=== PATIENT | female | born 1975 | race African-American/Black ===

== ENCOUNTER 2016-05-08 10:50 | Emergency (ER) | payer MEDICAID, OTHER ==
[~2016-05-08] VITALS: Ht 157.5 cm; Wt 63.0 kg
[~2016-05-08 10:50] MED LIST: ASPIRIN81 MG ORAL; LEVOTHYROXINE100 MCG ORAL; LISINOPRIL5 MG ORAL; METOPROLOL SUCC25 MG ORAL; OYSTER SHELL C500 MG PO; RAMIPRIL5 M1 PO; TENORMIN25 MG ORAL; VITAMIN D1000 UNI1 ORAL
[2016-05-08 11:14] VITALS: BP 125/78
[2016-05-08 11:29] LABS: APPEARANCE,URINE CLOUDY; KETONES,URINE NEGATIVE (NEGATIVE); LEUKOCYTE ESTERASE ,URINE 3+ (NEGATIVE); NITRITE,URINE POSITIVE (NEGATIVE); PH,URINE 5 (4.5-8.0); PROTEIN,URINE 2+ (NEGATIVE); UROBILINOGEN,URINE 4 MG/DL (0.0-1.0)
[2016-05-08 11:49] LABS: BACTERIA,URINE FEW /HPF; SQUAMOUS EPITHELIAL CELL,UR FEW /LPF (NONE/OCC); WBC,URINE 20-30 /HPF (0 - 2)
[2016-05-08 11:58] LABS: ICTOTEST POSITIVE
[2016-05-08 12:05] VITALS: BP 119/79
[2016-05-08] MEDS ORDERED: KEFLEX500 MG ORAL ×2 (12:06→12:10)
[2016-05-08] MEDS ORDERED: PHENAZOPYRIDIN100 MG ORAL ×2 (12:06→12:10)
--- NOTE | 2016-05-08 12:15 | Emergency Room Report ---
History of Present Illness General Chief Complaint: Female Urogenital Problems Source: Patient Present Illness HPI 40-year-old female presents ED complaining of burning urination x2 days. Notes increased pressure and urinating. Pain is burning, 5/10, nonradiating. No other area relieving factors. Denies fevers or chills. Denies flank pain. Denies nausea or vomiting. Denies any other associated symptoms Allergies: Coded Allergies: No Known Allergies (Unverified , 02/03/14) Patient History Past Medical History: HTN Past Surgical History: none Pertinent Family History: none Social History: Denies: alcohol use, drug use, smoking Last Menstrual Period: 04/17/16 Now: No Immunizations: UTD Reviewed Nursing Documentation: PMH: Agreed, PSxH: Agreed Nursing Documentation-PMH Past Medical History: No History, Except For Hx Hypertension: Yes Hx Cancer: No - benign breast Hx Gastrointestinal Problems: Yes Hx Neurological Problems: Yes Hx Vertigo: Yes Hx Dizziness: Yes Hx Headaches: Yes Review of Systems All Other Systems: negative except mentioned in HPI Physical Exam Vital Signs Date Time Temp Pulse Resp B/P Pulse Ox O2 Delivery O2 Flow Rate FiO2 05/08/16 11:00 97.7 102 18 125/78 96 Room Air Sp02 EP Interpretation: reviewed, normal General Appearance: no apparent distress, alert, GCS 15, non-toxic Head: normocephalic, atraumatic Eyes: bilateral eye PERRL, bilateral eye normal inspection ENT: hearing grossly normal, normal pharynx, no angioedema, normal voice Neck: full range of motion, supple/symm/no masses Respiratory: chest non-tender, lungs clear, normal breath sounds, speaking full sentences Cardiovascular #1: regular rate, rhythm, no edema Cardiovascular #2: 2+ carotid (R), 2+ carotid (L), 2+ radial (R), 2+ radial (L) , 2+ dorsalis pedis (R), 2+ dorsalis pedis (L) Gastrointestinal: normal bowel sounds, non tender, soft, non-distended, no guarding, no rebound Rectal: deferred Genitourinary: normal inspection, no CVA tenderness Musculoskeletal: back normal, gait/station normal, normal range of motion, non- tender Neurologic: alert, oriented x3, responsive, motor strength/tone normal, sensory intact, speech normal Psychiatric: judgement/insight normal, memory normal, mood/affect normal, no suicidal/homicidal ideation Reflexes: 3+ bicep (R), 3+ bicep (L), 3+ tricep (R), 3+ tricep (L), 3+ knee (R) , 3+ knee (L) Skin: normal color, no rash, warm/dry, well hydrated Lymphatic: no adenopathy Medical Decision Making Diagnostic Impression: Primary Impression: UTI (urinary tract infection) Qualified Codes: N39.0 - Urinary tract infection, site not specified ER Course Hospital Course 40-year-old female presents to ED complaining of dysuria with suprapubic pain. Differential diagnoses include: UTI, cystitis, pyelonephritis Clinical course Patient placed on stretcher. After initial history and physical I ordered UA, urine . UA + bacteria Diagnosis - UTI Stable and discharged home with prescriptions for Rx keflex, pyridium. Instructed to followup with PMD. Return to ED if symptoms recur or worsen Labs Test 05/08/16 11:06 Urine Color Brown Urine Appearance Cloudy Urine pH 5 (4.5-8.0) Urine Specific [place] 1.020 (1.005-1.035) Urine Protein 2+ (NEGATIVE) Urine Glucose (UA) Negative (NEGATIVE) Urine Ketones Negative (NEGATIVE) Urine Occult Blood 5+ (NEGATIVE) Urine Nitrite Positive (NEGATIVE) Urine Bilirubin 2+ (NEGATIVE) Urine Ictotest Positive Urine Urobilinogen 4 MG/DL (0.0-1.0) Urine Leukocyte Esterase 3+ (NEGATIVE) Urine RBC 5-10 /HPF (0 - 2) Urine WBC 20-30 /HPF (0 - 2) Urine Squamous Epithelial Cells Few /LPF (NONE/OCC) Urine Bacteria Few /HPF (NONE) Urine HCG, Qualitative Negative Last Vital Signs Date Time Temp Pulse Resp B/P Pulse Ox O2 Delivery O2 Flow Rate FiO2 05/08/16 12:05 97.7 89 18 119/79 96 Room Air Status: improved Disposition: HOME, SELF-CARE Condition: Stable Scripts Phenazopyridine Hcl* (PYRIDIUM*) 100 Mg Tablet 100 MG ORAL THREE TIMES A DAY, #9 TAB Prov: KHALIF HUGO M.D. 05/08/16 Cephalexin* (KEFLEX*) 500 Mg Capsule 500 MG ORAL Q6H, #28 CAP 0 Refills Prov: KHALIF HUGO M.D. 05/08/16 Patient Instructions: Urinary Tract Infection KHALIF HGUO M.D. May 08, 2016 12:15
== END 2016-05-08 12:10 | disposition home or self-care (01) ==
LOC: EMR 11:50
DX: N39.0 Urinary tract infection, site not specified (principal); I10 Essential (primary) hypertension
CPT/HCPCS: 81003; 81025; 87086; 87181; 99284

== ENCOUNTER 2018-10-25 10:50 | Emergency (ER) | payer MEDICAID ==
[~2018-10-25] VITALS: Ht 157.5 cm; Wt 67.6 kg
[~2018-10-25 10:50] MED LIST changes: +KEFLEX500 MG ORAL; +PHENAZOPYRIDIN100 MG ORAL
--- NOTE | 2018-10-25 10:55 | NUR ---
ED Nurse Note: Patient walked in to ER due to chest discomfort x3 days. No SOB. Afebrile. Hx of thyroidectomy 7 years ago and masectomy 11 years ago due to possible breast ca. She has HTN and hypothyroidism. Alert and oriented x4, verbally responsive.
[2018-10-25] MEDS ORDERED: AMLODIPINE BESYL5 MG ORAL (11:16)
[2018-10-25 11:30] VITALS: BP 127/84
[2018-10-25 11:38] LABS: APPEARANCE,URINE CLOUDY; BILIRUBIN, URINE NEGATIVE (NEGATIVE); COLOR,URINE BROWN; GLUCOSE, URINE (UA) NEGATIVE (NEGATIVE); KETONES,URINE 1+ (NEGATIVE); LEUKOCYTE ESTERASE ,URINE 2+ (NEGATIVE); NITRITE,URINE POSITIVE (NEGATIVE); PH,URINE 7 (4.5-8.0); PROTEIN,URINE 2+ (NEGATIVE); UROBILINOGEN,URINE 1 MG/DL (0.0-1.0)
[2018-10-25 11:39] LABS: BASOPHILS % (AUTO) 1.3 % (0.0-2.0); EOSINOPHILS % (AUTO) 2.1 % (0.0-3.0); HEMATOCRIT 33.7 % (37.0-47.0); HEMOGLOBIN 10.9 G/DL (12.0-16.0); LYMPHOCYTES % (AUTO) 33.5 % (20.0-45.0); MEAN CORPUSCULAR VOLUME 91 FL (80-99); MONOCYTES % (AUTO) 9.3 % (1.0-10.0); NEUTROPHILS % (AUTO) 53.8 % (45.0-75.0); PLATELET COUNT 261 K/UL (150-450); RED BLOOD COUNT 3.71 M/UL (4.20-5.40); RED CELL DISTRIBUTION WIDTH 13.6 % (11.6-14.8); WHITE BLOOD COUNT 6.3 K/UL (4.8-10.8)
--- NOTE | 2018-10-25 11:42 | Emergency Room Report ---
History of Present Illness General Chief Complaint: Chest Pain Source: Patient Present Illness HPI 43-year-old female history of hypertension, no family history of cardiac disease , no history of heart attacks presents with chest discomfort after eating she states that she has intermittent chest pain with her periods, she denies any dyspnea, no shortness of breath, no nausea no vomiting no diaphoresis, she states her chest pain has been ongoing since Thursday, 2 days prior to arrival no alleviating factors however eating may exacerbate it, she feels a lot of indigestion. Severity is mild. Allergies: Coded Allergies: No Known Allergies (Unverified , 02/03/14) Patient History Past Medical History: see triage record Last Menstrual Period: 10/24/18 Now: No Reviewed Nursing Documentation: PMH: Agreed; PSxH: Agreed Nursing Documentation-PMH Past Medical History: No History, Except For Hx Hypertension: Yes Hx Cancer: No - benign breast Hx Gastrointestinal Problems: Yes Hx Neurological Problems: Yes Hx Vertigo: Yes Hx Dizziness: Yes Hx Headaches: Yes Review of Systems All Other Systems: negative except mentioned in HPI Physical Exam Vital Signs Date Time Temp Pulse Resp B/P (MAP) Pulse Ox O2 Delivery O2 Flow Rate FiO2 10/25/18 10:55 98.8 92 20 146/83 (104) 98 Room Air Sp02 EP Interpretation: reviewed, normal General Appearance: well appearing, no apparent distress, alert Head: normocephalic, atraumatic Eyes: bilateral eye PERRL, bilateral eye EOMI ENT: uvula midline, moist mucus membranes Neck: supple, thyroid normal, supple/symm/no masses Respiratory: lungs clear, no respiratory distress, no retraction, no accessory muscle use Cardiovascular #1: normal peripheral pulses, regular rate, rhythm, no edema, no gallop, no murmur Gastrointestinal: non tender, soft, no guarding, no rebound Musculoskeletal: normal inspection Neurologic: alert, oriented x3 Psychiatric: mood/affect normal Skin: no rash, warm/dry Medical Decision Making Diagnostic Impression: Primary Impression: Atypical chest pain Additional Impression: UTI (urinary tract infection) Qualified Codes: N30.00 - Acute cystitis without hematuria ER Course Patient with atypical chest pain heart score of 2, no indication for admission, patient doing well, patient found to have an incidental UTI, patient is currently chest pain-free in the ED, she has atypical symptoms, no dyspnea on exertion no sweating, patient given strict return precautions for ACS, Laboratory Tests Test 10/25/18 11:06 White Blood Count 6.3 K/UL (4.8-10.8) Red Blood Count 3.71 M/UL (4.20-5.40) L Hemoglobin 10.9 G/DL (12.0-16.0) L Hematocrit 33.7 % (37.0-47.0) L Mean Corpuscular Volume 91 FL (80-99) Mean Corpuscular Hemoglobin 29.5 PG (27.0-31.0) Mean Corpuscular Hemoglobin Concent 32.4 G/DL (32.0-36.0) Red Cell Distribution Width 13.6 % (11.6-14.8) Platelet Count 261 K/UL (150-450) Mean Platelet Volume 6.1 FL (6.5-10.1) L Neutrophils (%) (Auto) 53.8 % (45.0-75.0) Lymphocytes (%) (Auto) 33.5 % (20.0-45.0) Monocytes (%) (Auto) 9.3 % (1.0-10.0) Eosinophils (%) (Auto) 2.1 % (0.0-3.0) Basophils (%) (Auto) 1.3 % (0.0-2.0) Prothrombin Time 10.8 SEC (9.30-11.50) Prothrombin Time INR 1.0 (0.9-1.1) Urine Color Brown Urine Appearance Cloudy Urine pH 7 (4.5-8.0) Urine Specific [place] 1.010 (1.005-1.035) Urine Protein 2+ (NEGATIVE) H Urine Glucose (UA) Negative (NEGATIVE) Urine Ketones 1+ (NEGATIVE) H Urine Blood 5+ (NEGATIVE) H Urine Nitrite Positive (NEGATIVE) H Urine Bilirubin Negative (NEGATIVE) Urine Urobilinogen 1 MG/DL (0.0-1.0) H Urine Leukocyte Esterase 2+ (NEGATIVE) H Urine RBC Tntc /HPF (0 - 2) H Urine WBC 2-4 /HPF (0 - 2) Urine Squamous Epithelial Cells Occasional /LPF Urine Bacteria Few /HPF (NONE) Urine HCG, Qualitative Negative (NEGATIVE) Sodium Level 138 MMOL/L (136-145) Potassium Level 4.2 MMOL/L (3.5-5.1) Chloride Level 105 MMOL/L (98-107) Carbon Dioxide Level 24 MMOL/L (21-32) Anion Gap 9 mmol/L (5-15) Blood Urea Nitrogen 12 mg/dL (7-18) Creatinine 0.5 MG/DL (0.55-1.30) L Estimate Glomerular Filtration Rate > 60 mL/min (>60) Glucose Level 94 MG/DL (74-106) Calcium Level 7.6 MG/DL (8.5-10.1) L Total Bilirubin Pending Aspartate Amino Transferase (AST) Pending Alanine Aminotransferase (ALT) Pending Alkaline Phosphatase Pending Total Creatine Kinase Pending Creatine Kinase MB Pending Troponin I 0.000 ng/mL (0.000-0.056) Pro-B-Type Natriuretic Peptide Pending Total Protein Pending Albumin Pending Globulin Pending Urine Opiates Screen Negative (NEGATIVE) Urine Barbiturates Screen Negative (NEGATIVE) Phencyclidine (PCP) Screen Negative (NEGATIVE) Urine Amphetamines Screen Negative (NEGATIVE) Urine Benzodiazepines Screen Negative (NEGATIVE) Urine Cocaine Screen Negative (NEGATIVE) Urine Marijuana (THC) Screen Negative (NEGATIVE) EKG Diagnostic Results EKG Time: 11:02 EP Interpretation: NSR, rate 86, QTc 437, no acute ST elevations, normal axis, Rate: normal Rhythm: NSR ST Segments: no acute changes Rhythm Strip Diag. Results Rhythm Strip Time: 11:42 EP Interpretation: yes Rate: 83 Rhythm: NSR, no PVC's, no ectopy Chest X-Ray Diagnostic Results Chest X-Ray Diagnostic Results : Chest X-Ray Ordered: Yes # of Views/Limited/Complete: 1 View Indication: Chest Pain EP Interpretation: Yes Interpretation: no consolidation, no effusion, no pneumothorax, no acute cardiopulmonary disease Impression: No acute disease Electronically Signed by: Tyson Bledsoe MD Last Vital Signs Date Time Temp Pulse Resp B/P (MAP) Pulse Ox O2 Delivery O2 Flow Rate FiO2 10/25/18 11:30 98.1 83 18 127/84 100 Room Air Disposition: HOME, SELF-CARE Condition: Stable Scripts Cephalexin* (CEPHALEXIN*) 500 Mg Tablet 500 MG ORAL EVERY 6 HOURS, #40 CAP Prov: Tyson Bledsoe MD 10/25/18 Famotidine (PEPCID AC) 20 Mg Tablet 20 MG PO BID, #60 TAB Prov: Tyson Bledsoe MD 10/25/18 Referrals: NON PHYSICIAN (PCP) [facility] Osiris Garcia. [facility] Patient Instructions: Nonspecific Chest Pain, Urinary Tract Infection, Easy-to- Read Additional Instructions: The patient was provided with discharge instructions, notified to follow-up with a primary care doctor and or specialist in the next 24-48 hours, and to return to the ED if they have worsening of their symptoms. Please note that this report is being documented using [employer] technology. This can lead to erroneous entry secondary to incorrect interpretation by the dictating instrument. PLEASE FOLLOW-UP WITH A THREAD GRINDER IN 24-48 HOURS Tyson Bledsoe MD Oct 25, 2018 11:42
[2018-10-25 11:48] LABS: ANION GAP 9 mmol/L (5-15); BLOOD UREA NITROGEN 12 mg/dL (7-18); CALCIUM 7.6 MG/DL (8.5-10.1); CARBON DIOXIDE 24 MMOL/L (21-32); CHLORIDE 105 MMOL/L (98-107); CREATININE 0.5 MG/DL (0.55-1.30); POTASSIUM 4.2 MMOL/L (3.5-5.1); SODIUM 138 MMOL/L (136-145)
[2018-10-25] MEDS ORDERED: PEPCID AC20 M2 PO (12:15)
[2018-10-25] MEDS ORDERED: CEPHALEXIN500 M1 ORAL (12:17)
[2018-10-25 12:18] LABS: ALANINE AMINOTRANSFERASE 13 U/L (12-78); ALBUMIN 3.5 G/DL (3.4-5.0); ALBUMIN/GLOBULIN RATIO 0.8 (1.0-2.7); ALKALINE PHOSPHATASE 53 U/L (46-116); ASPARTATE AMINO TRANSFERASE 29 U/L (15-37); BILIRUBIN,TOTAL 0.4 MG/DL (0.2-1.0); CREATINE KINASE 132 U/L (26-308)
--- NOTE | 2018-10-25 12:59 | Diagnostic Imaging Report ---
Indication: Reason For Exam: CP Technique: One view of the chest Comparison: 12/15/2015 Findings: Lungs and pleural spaces are clear. Heart size is normal. No significant interim change Impression: No acute process
[2018-10-25 13:03] VITALS: BP 140/76
--- NOTE | 2018-10-25 13:03 | NUR ---
ED Nurse Note: Pt cleared by ERMDfor discharge. DC instructions/prescription was given and explained to pt and verbalized understanding of teachings. All medical deviecs such as ID band and IV line removed. Pt is AAO x4, ambulatory and left with all personal belongings.
[2018-10-25 13:05] LABS: CKMB 0.3 NG/ML (0.0-3.6)
--- NOTE | 2018-10-26 11:05 | Cardiology Report ---
APPROVED REPORT EKG Measurement Heart [id number] Normal sinus rhythm Possible Left atrial enlargement Left ventricular hypertrophy Nonspecific ST abnormality Abnormal ECG
== END 2018-10-25 13:03 | disposition home or self-care (01) ==
LOC: EMR 11:10
DX: N30.00 Acute cystitis without hematuria (principal); R07.89 Other chest pain; I10 Essential (primary) hypertension
CPT/HCPCS: 36415; 71045; 80053; 80307; 81003; 81025; 82550; 82553; 83880; 84484; 85025; 85610; 93005; 99284